=== PATIENT | male | born 1960 | race African-American/Black ===

== ENCOUNTER 2017-09-02 18:37 | Emergency (ER) | payer SELFPAY ==
[2017-09-02 18:44] VITALS: BP 136/91; PULSE 99; RESP 16; TEMP 98; O2SAT 99
--- NOTE | 2017-09-02 18:47 | ED PDOC ---
HPI: Psych/Substance Abuse Time Seen by Provider: 09/02/17 18:44 Chief Complaint (Nursing): Alcohol Ingestion Chief Complaint (Provider): etoh History Per: Patient, EMS Additional Complaint(s): Patient arrives via ambulance for acute alcohol intoxication. As per EMS patient was wandering in the street with unsteady gait. He admits to drinking today and offers no acute complaints. Past Medical History Reviewed: Historical Data, Nursing Documentation, Vital Signs Vital Signs: Last Vital Signs Temp 98.0 F 09/02/17 18:40 Pulse 99 H 09/02/17 18:40 Resp 16 09/02/17 18:40 BP 136/91 H 09/02/17 18:40 Pulse Ox 99 09/02/17 18:40 - Medical History PMH: No Chronic Diseases - Family History Family History: States: No Known Family Hx - Social History Alcohol: > 2 Drinks/Day - Allergies Allergies/Adverse Reactions: Allergies Allergy/AdvReac Type Severity Reaction Status Date / Time No Known Allergies Allergy Verified 09/02/17 18:39 Review of Systems ROS Statement: Except As Marked, All Systems Reviewed And Found Negative Psych: Positive for: Other (etoh) Physical Exam - Reviewed Nursing Documentation Reviewed: Yes Vital Signs Reviewed: Yes - Physical Exam Appears: Positive for: Non-toxic, No Acute Distress. Negative for: Well ( appears unkempt) Skin: Negative for: Rash Eye Exam: Positive for: Normal appearance Cardiovascular/Chest: Positive for: Regular Rate, Rhythm Respiratory: Positive for: Normal Breath Sounds Extremity: Positive for: Normal ROM Neurologic/Psych: Positive for: Alert, Other (intoxicated, answers some questions appropriately) - ECG O2 Sat by Pulse Oximetry: 99 Pulse Ox Interpretation: Normal Medical Decision Making Medical Decision Making: Impression: Acute etoh intoxication Plan: BAL Glucose POC BAL: 405 Finger stick: 98 10:10 pm: Patient became acutely agitated, got out of bed and started to take hospital growns off stating he wants his clothing so that he can leave. Patient still intoxicated with unsteady gait. Several attempts made to redirect patient back to stretcher but patient refused to go back to stretcher. Security was called to bedside and patient was placed in 4 point restraints for his safety and the safety of ED staff. Patient medicated with 2 mg IM Ativan. He will continue to remain under one-to-one bedside observation. 11:38: Patient is still agitated, sitting up in stretcher with restraints on, pulling at restraints. Patient medicated with Haldol 2.5 mg IM for persistent agitation. Disposition - Clinical Impression Clinical Impression: Alcohol abuse with intoxication - Patient ED Disposition Is Patient to be Admitted: Transfer of Care - Disposition Disposition: Transfer of Care Disposition Time: 23:55 Condition: FAIR Forms: [email or web address] (B[place]ian) Patient Signed Over To: Karime Alexandra Handoff Comments: Case was signed out to MANOLO Alexandra pending sobriety and final disposition
--- NOTE | 2017-09-03 03:59 | ED PDOC ---
- ECG O2 Sat by Pulse Oximetry: 99 Medical Decision Making Medical Decision Making: Case endorsed to video game script writer from [facility] at midnight pending Clinical sobirety Disposition - Clinical Impression Clinical Impression: Alcohol abuse with intoxication - Disposition Condition: FAIR Forms: [facility] (Upper Sorbian)
== END 2017-09-03 07:01 | disposition home or self-care (01) ==
LOC: H.ER 18:37
DX: F10.10 Alcohol abuse, uncomplicated (principal)
CPT/HCPCS: 82948; 96372; 99282; G0480; J1630; J2060